=== PATIENT | female | born 1995 | race Caucasian/White ===

== ENCOUNTER 2017-03-24 11:24 | Emergency (ER) | payer OTHER ==
[~2017-03-24] VITALS: Ht 165.1 cm; Wt 68.2 kg
[2017-03-24 11:25] VITALS: BP 117/65
[2017-03-24] MEDS ORDERED: BENT20TA PO (13:16)
== END 2017-03-24 13:39 | disposition home or self-care (01) ==
LOC: M ED 11:24
DX: R10.2 Pelvic and perineal pain (principal); R19.7 Diarrhea, unspecified; F99 Mental disorder, not otherwise specified; Z87.42 Personal history of other diseases of the female genital tract

== ENCOUNTER 2017-06-19 15:29 | Emergency (ER) | payer OTHER ==
[2017-06-19 17:26] LABS: KETONE, URINE AUTO RFX NEGATIVE (NEGATIVE); LEUKOCYTE ESTERASE UR AUTO RFX NEGATIVE (NEGATIVE); NITRITE, URINE AUTO RFX NEGATIVE (NEGATIVE); RBC, URINE AUTO RFX 0 /HPF (0-3); SQUAM EPITHELIAL CELL UR AURFX 3 /HPF (0-6); WBC, URINE AUTO RFX 1 /HPF (0-3)
[2017-06-19 19:53] LABS: CHLAMYDIA DNA AMPLIFICATION NEGATIVE (NEGATIVE); GC DNA AMPLIFICATION NEGATIVE (NEGATIVE)
== END 2017-06-19 17:59 | disposition home or self-care (01) ==
LOC: M ED 15:29
DX: N76.0 Acute vaginitis (principal); N89.8 Other specified noninflammatory disorders of vagina
CPT/HCPCS: 81001

== ENCOUNTER 2017-07-20 14:19 | Emergency (ER) | payer OTHER | END 2017-07-20 16:43 | disposition left against medical advice (07) | LOC: M ED 14:19 | DX: R10.9 Unspecified abdominal pain (principal); Z53.21 Procedure and treatment not carried out due to patient leaving prior to being seen by health care provider ==

== ENCOUNTER 2017-09-24 20:18 | Emergency (ER) | payer OTHER | END 2017-09-24 20:26 | disposition left against medical advice (07) | LOC: M ED 20:18 | DX: Z53.21 Procedure and treatment not carried out due to patient leaving prior to being seen by health care provider (principal) ==

== ENCOUNTER → 2017-10-02 | Outpatient (REF) | payer OTHER ==
[2017-10-02 23:05] LABS: CHLAMYDIA DNA AMPLIFICATION NEGATIVE (NEGATIVE); GC DNA AMPLIFICATION NEGATIVE (NEGATIVE)
== END ==
LOC: M SFHCLERA 15:27
DX: R30.0 Dysuria (principal)

== ENCOUNTER 2018-03-20 22:04 | Emergency (ER) | payer OTHER ==
[2018-03-20 23:39] LABS: BASO % 0.2 % (0.0-1.0); EOS # 0.1 10^3/uL (0.0-0.50); EOS % 0.7 % (0.0-3.0); HEMOGLOBIN 13.3 g/dl (12.0-15.5); IMMATURE GRANULOCYTE % 0.4 % (0-3.0); LYMPH # 2.8 10^3/uL (1.5-6.5); LYMPH % 33.7 % (24.0-44.0); MEAN CORPUSCULAR HGB CONC 34.1 g/dl (32.0-36.5); MEAN CORPUSCULAR VOLUME 90.9 fl (80.0-96.0); MONO # 0.3 10^3/uL (0.0-0.8); MONO % 3.9 % (0.0-5.0); NEUTROPHILS % 61.1 % (36.0-66.0); PLATELET COUNT, AUTOMATED 241 10^3/uL (150-450); RED BLOOD COUNT 4.29 10^6/uL (4.00-5.40); RED CELL DISTRIBUTION WIDTH 11.8 % (11.5-14.5); WHITE BLOOD COUNT 8.2 10^3/uL (4.0-10.0)
[2018-03-20 23:51] LABS: APPEARANCE, URINE CLEAR (CLEAR); BACTERIA, URINE AUTO 1+ (NEGATIVE); BILIRUBIN, URINE AUTO NEGATIVE (NEGATIVE); BLOOD, URINE BLOOD NEGATIVE (NEGATIVE); COLOR, URINE STRAW (YELLOW); GLUCOSE, URINE (UA) AUTO NEGATIVE (NEGATIVE); KETONE, URINE AUTO NEGATIVE (NEGATIVE); LEUKOCYTE ESTERASE, URINE AUTO NEGATIVE (NEGATIVE); NITRITE, URINE AUTO NEGATIVE (NEGATIVE); PROTEIN, URINE AUTO NEGATIVE (NEGATIVE); RBC, URINE AUTO 1 /HPF (0-3); SPECIFIC GRAVITY URINE AUTO 1.011 (1.002-1.035); SQUAMOUS EPITHELIAL CELL UR AU 1 /HPF (0-6); UROBILINOGEN, URINE AUTO 0.2 mg/dL (0.0-2.0); WBC, URINE AUTO 1 /HPF (0-3)
[2018-03-21 00:01] LABS: ALBUMIN 4.1 GM/DL (3.2-5.2); ALBUMIN/GLOBULIN RATIO 1.24 (1.00-1.93); ALKALINE PHOSPHATASE 68 U/L (45-117); ALT/SGPT 18 U/L (12-78); ANION GAP 5 MEQ/L (8-16); AST/SGOT 11 U/L (7-37); BILIRUBIN,TOTAL 0.3 MG/DL (0.2-1.0); BLOOD UREA NITROGEN 15 MG/DL (7-18); CALCIUM LEVEL 9.1 MG/DL (8.5-10.1); CARBON DIOXIDE LEVEL 30 MEQ/L (21-32); CHLORIDE LEVEL 104 MEQ/L (98-107); CREATININE FOR GFR 0.84 MG/DL (0.55-1.30); GLOMERULAR FILTRATION RATE > 60.0 (>60); GLUCOSE, FASTING 90 MG/DL (70-100); LIPASE 127 U/L (73-393); POTASSIUM SERUM 3.9 MEQ/L (3.5-5.1); SODIUM LEVEL 139 MEQ/L (136-145); TOTAL PROTEIN 7.4 GM/DL (6.4-8.2)
[2018-03-21 00:08] LABS: CONTROL LINE HCG INT CTR LINE PRESENT; HCG, SERUM QUALITATIVE NEGATIVE (NEGATIVE)
[2018-03-21 02:36] LABS: CHLAMYDIA DNA AMPLIFICATION NEGATIVE (NEGATIVE); GC DNA AMPLIFICATION NEGATIVE (NEGATIVE)
== END 2018-03-21 01:34 | disposition home or self-care (01) ==
LOC: M ED 22:04
DX: R10.2 Pelvic and perineal pain (principal); N89.8 Other specified noninflammatory disorders of vagina; N83.201 Unspecified ovarian cyst, right side
CPT/HCPCS: 76856

== ENCOUNTER 2019-03-29 21:01 | Emergency (ER) | payer OTHER ==
[~2019-03-29] VITALS: Ht 165.1 cm; Wt 80.9 kg
[~2019-03-29 21:01] MED LIST: BENT20TA PO; FLAG500T PO
[2019-03-29] MEDS ORDERED: NS 1,000 ML IV ONE (21:15)
[2019-03-29 21:34] LABS: HEMATOCRIT 44.2 % (36.0-47.0); HEMOGLOBIN 14.5 g/dl (12.0-15.5); MEAN CORPUSCULAR HEMOGLOBIN 30.4 pg (27.0-33.0); MEAN CORPUSCULAR HGB CONC 32.8 g/dl (32.0-36.5); MEAN CORPUSCULAR VOLUME 92.7 fl (80.0-96.0); PLATELET COUNT, AUTOMATED 264 10^3/uL (150-450); RED BLOOD COUNT 4.77 10^6/uL (4.00-5.40); WHITE BLOOD COUNT 8.9 10^3/uL (4.0-10.0)
[2019-03-29 21:48] LABS: AMPHETAMINES LEVEL URINE NEGATIVE (NEGATIVE); BARBITURATES URINE NEGATIVE (NEGATIVE); BENZODIAZEPINES URINE NEGATIVE (NEGATIVE); CANNABINOIDS URINE POSITIVE (NEGATIVE); COCAINE METABOLITE URINE NEGATIVE (NEGATIVE); METHADONE URINE NEGATIVE (NEGATIVE); OPIATES URINE NEGATIVE (NEGATIVE); PHENCYCLIDINE URINE NEGATIVE (NEGATIVE)
[2019-03-29 22:00] VITALS: BP 152/75
[2019-03-29 22:01] LABS: HCG, SERUM QUALITATIVE NEGATIVE (NEGATIVE)
[2019-03-29 22:11] LABS: ACETAMINOPHEN LEVEL < 2.0 UG/ML (10.0-30.0); ALBUMIN 4.5 GM/DL (3.2-5.2); ALT/SGPT 27 U/L (12-78); BILIRUBIN,DIRECT 0.2 MG/DL (0.0-0.2); BILIRUBIN,TOTAL 0.7 MG/DL (0.2-1.0); BLOOD UREA NITROGEN 12 MG/DL (7-18); CALCIUM LEVEL 9.3 MG/DL (8.5-10.1); CARBON DIOXIDE LEVEL 24 MEQ/L (21-32); CHLORIDE LEVEL 108 MEQ/L (98-107); CREATININE FOR GFR 0.92 MG/DL (0.55-1.30); ETHYL ALCOHOL (ETHANOL) < 0.003 % (0.000-0.010); GLOMERULAR FILTRATION RATE > 60.0 (>60); GLUCOSE, FASTING 93 MG/DL (70-100); POTASSIUM SERUM 3.6 MEQ/L (3.5-5.1); SALICYLATE LEVEL < 1.7 MG/DL (5.0-30.0); SODIUM LEVEL 140 MEQ/L (136-145); TOTAL PROTEIN 8.5 GM/DL (6.4-8.2)
[2019-03-29] MEDS ORDERED: ONDANSETRON 4MG/2ML VIAL (J2405) IV ONE (22:30)
--- NOTE | 2019-03-31 08:21 | ECGEPIP ---
[facility] - ED Test Date: 2019-03-29 Pat Name: ILIANA MOODY Department: Room: - Gender: Female Mental Health Associate: SB : 1995 Requested By: RANJAN Calderón Order Number: [id number] Reading MD: Didier Solis Measurements Intervals [place] Rate: 107 P: 71 NH: 144 QRS: 87 QRSD: 100 T: 9 QT: 337 QTc: 451 Interpretive Statements SINUS TACHYCARDIA POSSIBLE LEFT ATRIAL ENLARGEMENT INCOMPLETE RIGHT BUNDLE BRANCH BLOCK NO PRIORS FOR COMPARISON Electronically Signed on 03-31-2019 8:21:07 EST by Didier Solis
== END 2019-03-30 00:57 | disposition home or self-care (01) ==
LOC: M ED 21:01
DX: F19.10 Other psychoactive substance abuse, uncomplicated (principal); R00.0 Tachycardia, unspecified; I45.19 Other right bundle-branch block; F17.200 Nicotine dependence, unspecified, uncomplicated; K25.9 Gastric ulcer, unspecified as acute or chronic, without hemorrhage or perforation
CPT/HCPCS: 80048; 80076; 80307; 84443; 84703; 85027; 93005; 93041; 94760; 96360; 96361; 99285; G0480; J2405

== ENCOUNTER 2019-04-22 15:00 | Emergency (ER) | payer OTHER, SELFPAY ==
[~2019-04-22] VITALS: Ht 165.1 cm; Wt 89.3 kg
[2019-04-22] MEDS ORDERED: ONDANSETRON 4MG/2ML VIAL (J2405) IV ONE ×2 (16:00→19:00)
[2019-04-22] MEDS ORDERED: NS 1,000 ML IV ONE (16:00)
[2019-04-22 16:02] LABS: BASO % 0.3 % (0.0-1.0); EOS % 0.3 % (0.0-3.0); HEMOGLOBIN 14.5 g/dl (12.0-15.5); LYMPH # 1.7 10^3/uL (1.5-5.0); LYMPH % 26.6 % (24.0-44.0); MEAN CORPUSCULAR HEMOGLOBIN 29.7 pg (27.0-33.0); MEAN CORPUSCULAR HGB CONC 32.2 g/dl (32.0-36.5); MEAN CORPUSCULAR VOLUME 92.2 fl (80.0-96.0); MONO # 0.3 10^3/uL (0.0-0.8); MONO % 4.7 % (0.0-5.0); NEUTROPHILS # 4.4 10^3/uL (1.5-8.5); NEUTROPHILS % 67.5 % (36.0-66.0); PLATELET COUNT, AUTOMATED 282 10^3/uL (150-450); RED BLOOD COUNT 4.88 10^6/uL (4.00-5.40); WHITE BLOOD COUNT 6.4 10^3/uL (4.0-10.0)
[2019-04-22 16:36] LABS: HCG, SERUM QUALITATIVE NEGATIVE (NEGATIVE)
[2019-04-22 16:49] LABS: ALT/SGPT 22 U/L (12-78); BILIRUBIN,DIRECT 0.2 MG/DL (0.0-0.2); BILIRUBIN,TOTAL 1.1 MG/DL (0.2-1.0); BLOOD UREA NITROGEN 14 MG/DL (7-18); CALCIUM LEVEL 9.3 MG/DL (8.5-10.1); CARBON DIOXIDE LEVEL 26 MEQ/L (21-32); CHLORIDE LEVEL 105 MEQ/L (98-107); CREATININE FOR GFR 0.87 MG/DL (0.55-1.30); GLOMERULAR FILTRATION RATE > 60.0 (>60); GLUCOSE, FASTING 79 MG/DL (70-100); LIPASE 58 U/L (73-393); SODIUM LEVEL 137 MEQ/L (136-145)
[2019-04-22] MEDS ORDERED: ISOVUE-370 76% 100ML VIAL (Q9967) As Ordered ONE (17:25)
--- NOTE | 2019-04-22 18:34 | REPVR ---
PROCEDURE INFORMATION: Exam: CT Abdomen And Pelvis With Contrast Exam date and time: 04/22/2019 5:41 PM Age: 23 years old Clinical indication: Abdominal pain; Localized; Lower; Additional info: Bilat low quadrant pain, vomiting, diarrhea TECHNIQUE: Imaging protocol: Computed tomography of the abdomen and pelvis with intravenous contrast. Radiation optimization: All CT scans at this facility use at least one of these dose optimization techniques: automated exposure control; mA and/or kV adjustment per patient size (includes targeted exams where dose is matched to clinical indication); or iterative reconstruction. Contrast material: ISOVUE 370; Contrast volume: 100 ml; Contrast route: IV; COMPARISON: US PELVIC NON-OB COMPLETE 03/20/2018 11:39 PM FINDINGS: Lungs: Lung bases are clear. Liver: There are no focal liver lesions present. Gallbladder and bile ducts: The gallbladder is normal. Pancreas: The pancreas is normal. Spleen: The spleen is normal. Adrenals: The adrenal glands are normal. Kidneys and ureters: The kidneys are normal. Stomach and bowel: There is no evidence of intestinal obstruction. The wall of the transverse colon appears thickened although the lumen is not completely distended. There mass the minimal stranding in the adjacent soft tissues. A normal appendix is identified. Appendix: See Stomach And Bowel Finding. Intraperitoneal space: Unremarkable. No free air. No significant fluid collection. Vasculature: The aorta is normal. Lymph nodes: Unremarkable. No enlarged lymph nodes. Bladder: The bladder is unremarkable. Reproductive: There is a probable dominant follicle in left ovary measuring 1.9 cm. Follicles are also seen in the right ovary. Bones/joints: Pectus excavatum. Soft tissues: See Stomach And Bowel Finding. IMPRESSION: There appears to be thickening of the wall of the transverse colon which may be due to colitis since there is also mild adjacent soft tissue stranding. There may be mild soft tissue stranding surrounding the descending colon as well. Electronically signed by: Kecia Knox On 04/22/2019 18:34:16 PM
[2019-04-22] MEDS ORDERED: CIPROFLOXACIN 500 MG TAB PO ONE (18:45)
[2019-04-22] MEDS ORDERED: metroNIDAZOLE (FLAGYL) 500 MG TAB PO ONE (18:45)
[2019-04-22] MEDS ORDERED: ZOFR4TAB16 PO (19:57)
[2019-04-22] MEDS ORDERED: FLAG500T PO (19:58)
[2019-04-22] MEDS ORDERED: CIPR-249 PO (19:58)
[2019-04-22 20:12] VITALS: BP 112/62
== END 2019-04-22 20:14 | disposition home or self-care (01) ==
LOC: M ED 15:00
DX: K52.9 Noninfective gastroenteritis and colitis, unspecified (principal); F17.200 Nicotine dependence, unspecified, uncomplicated; Z88.1 Allergy status to other antibiotic agents
CPT/HCPCS: 74177; 80048; 80076; 83690; 84703; 85025; 93041; 96361; 96374; 96376; 99284; J2405; Q9967